=== PATIENT | female | born 1950 | race African-American/Black ===

== ENCOUNTER 2025-07-27 09:48 | Emergency (ER) | payer SELFPAY ==
[~2025-07-27] VITALS: Ht 162.6 cm; Wt 64.0 kg
[2025-07-27 09:50] VITALS: O2SAT 100
[2025-07-27] MEDS ORDERED: ACET-2708 MT (10:49)
[2025-07-27 11:14] VITALS: BP 131/62; PULSE 77; RESP 18; TEMP 36.8; O2SAT 100
== END 2025-07-27 11:36 | disposition home or self-care (01) ==
LOC: ER 09:48
DX: M25.562 Pain in left knee (principal); I10 Essential (primary) hypertension; Z88.1 Allergy status to other antibiotic agents; Z96.652 Presence of left artificial knee joint
CPT/HCPCS: 73560; 99283